=== PATIENT | male | born 1985 | race Caucasian/White ===

== ENCOUNTER 2022-11-06 10:40 | Emergency (ER) | payer BC, SELFPAY ==
[2022-11-06 11:20] VITALS: BP 126/76; PULSE 91; RESP 16; TEMP 36.2; O2SAT 99
--- NOTE | 2022-11-06 12:04 | ED.MALEGU ---
HPI - Male Genitourinary General Chief complaint: Urogenital-Male Stated complaint: UTI Source: patient Mode of arrival: ambulatory Limitations: no limitations History of Present Illness HPI Narrative: 37-year-old male presents to urgent care with complaints of dysuria and burning with urination for the past 3 days. Patient denies penile discharge, fever, bodyaches, chills, abdominal pains or back pains. Patient reports that he did have unprotected intercourse with a new partner 1 week ago. MD Complaint: dysuria Onset (ago): day(s) (3) Relieving factors: none Exacerbating factors: none Context: new sexual partner Associated symptoms: Reports denies other symptoms Related Data Allergies Allergy/AdvReac Type Severity Reaction Status Date / Time Sulfa (Sulfonamide Allergy Mild Verified 04/28/16 09:21 Antibiotics) Review of Systems Constitutional: Constitutional: Denies chills, Denies fatigue, Denies fever(s) and Denies weakness ENT: Denies vertigo and Denies dizziness Cardiovascular: Cardiovascular: Denies chest pain Respiratory: Respiratory: Denies chest congestion, Denies cough, Denies dyspnea and Denies wheezing Gastrointestinal: Gastrointestinal: Denies diarrhea, Denies nausea and Denies vomiting Genitourinary: Genitourinary: Reports dysuria, Denies penile discharge, Denies testicular pain and Denies urinary frequency Integumentary/Breasts: Skin/Breast: Denies rash Neurologic: Denies dizziness PMFSH Comments At time of signature, I agree with nursing past medical, surgical, social and family history. There is no relevant family history pertinent to the presenting complaint. Exam Const: General: healthy appearing, no acute distress and alert Nutritional Appearance: well nourished Limitations: no limitations Neck: Neck: normal visual inspection Resp: Effort & Inspection: normal respiratory effort and not labored Auscultation: clear to auscultation bilaterally, no crackles, no rales, no rhonchi and no wheezes Cardio: Rate: regular rate Rhythm: regular rhythm Heart sounds: no murmurs GI: GI Palp: Yes Soft to palpation, No Tenderness to palpation present (GI) and No Guarding due to palpation present (GI) Auscultation: normal bowel sounds : Other: Patient refuses penis/scrotum evaluation Back/Spine/Pelvis: Back: no CVA tenderness Skin: General skin exam: normal color Rashes: no rashes Neuro: General: patient oriented x3 Psych: Affect: normal affect Attitude: cooperative Course Course Level of Care: Express Care Visit Vital Signs Vital signs: Vital Signs Temperature 36.2 C L 11/06/22 11:20 Pulse Rate 91 11/06/22 11:20 Respiratory Rate 16 11/06/22 11:20 Blood Pressure 126/76 11/06/22 11:20 Pulse Oximetry 99 11/06/22 11:20 Oxygen Delivery Room Air 11/06/22 11:20 Temperature 36.2 C L 11/06/22 11:20 Pulse Rate 91 11/06/22 11:20 Respiratory Rate 16 11/06/22 11:20 Blood Pressure 126/76 11/06/22 11:20 Pulse Oximetry 99 11/06/22 11:20 Oxygen Delivery Room Air 11/06/22 11:20 MDM - Male Genitourinary MDM Narrative Medical decision making narrative: discussed negative urinalysis results with patient. due to symptoms, I am highly suspicious for an STD. Urine will be sent to lab for chlamydia, gonorrhea and Trichomonas. Patient will be treated with Rocephin and prescription for doxycycline will be sent to pharmacy. Patient understands that he is to abstain from intercourse pending STD results. Patient understands that he is to inform all partners of test results if positive Differential Diagnosis Differential diagnosis: Likely urethritis, epididymitis and genital herpes simplex Lab Data Labs: Urine Glucose Negative Reference Range: Negative Urine Bilirubin Negative Reference Range: Negative Urine Ket
[2022-11-06] MEDS: cefTRIAXone 500 MG VIAL IM (12:15)
== END 2022-11-06 12:40 | disposition home or self-care (01) ==
PROVIDERS: Emergency Provider Nurse Practitioner Family; PCP Physician Assistant
DX: R30.0 Dysuria (principal); Z72.51 High risk heterosexual behavior
CPT/HCPCS: 81003; 87491; 87591; 87661; 96372; 99213; G0463; J0696

== ENCOUNTER → 2022-12-15 10:39 | Outpatient (CLI) | payer BC, SELFPAY ==
--- NOTE | ~2022-12-15 | XR_ITS ---
EXAMINATION: XR lumbar spine min 4V DATE: 12/15/2022 11:03 INDICATION: Right-sided low back pain TECHNIQUE: Anteroposterior, lateral, and bilateral oblique views of the lumbar spine, and cone-down l ateral view of the lumbosacral junction were obtained. COMPARISON: CT dated 04/28/2016 FINDINGS: 5 degrees lumbar levocurvature. Sagittal alignment is normal. Vertebral body and disc heights are nor mal. Mild mid to lower lumbar facet osteoarthritis. No pars interarticularis defects. Sacral arches a re intact. Mild bilateral sacroiliac osteoarthritis. IMPRESSION: 1. Mild lumbar levocurvature and mild facet osteoarthritis. 2. Mild bilateral sacroiliac osteoarthritis. Reviewed, dictated and finalized at location B. NE UNDERWRITER
== END ==
PROVIDERS: PCP Emergency Medicine; Visit Provider Emergency Medicine
DX: M53.3 Sacrococcygeal disorders, not elsewhere classified (principal); M51.36 Other intervertebral disc degeneration, lumbar region
CPT/HCPCS: 72110

== ENCOUNTER 2023-03-24 13:37 | Emergency (ER) | payer BC, SELFPAY ==
[2023-03-24 13:48] VITALS: BP 119/62; PULSE 74; RESP 16; TEMP 36.7; O2SAT 99
--- NOTE | 2023-03-24 13:50 | ED.URI ---
HPI - URI/Sore Throat General Stated Complaint: sti Source: patient and RN notes reviewed Mode of arrival: ambulatory Limitations: no limitations Related Data Allergies Allergy/AdvReac Type Severity Reaction Status Date / Time Sulfa (Sulfonamide Allergy Mild Verified 04/28/16 09:21 Antibiotics) Review of Systems Review of Systems: CONSTITUTIONAL: Denies malaise, chills, sweats, or fever. CARDIOVASCULAR: Denies chest pain, palpitations, or edema. RESPIRATORY: Denies cough or dyspnea. GASTROINTESTINAL: Denies abdominal pain, nausea, vomiting, diarrhea GENITOURINARY: Reports dysuria, frequency, urgency, suprapubic pressure. Denies flank pain or hematuria. SKIN: Denies rash or itching. MUSCULOSKELETAL: Denies back pain or myalgia. All systems reviewed & are unremarkable except as noted in HPI and below PMFSH Comments At time of signature, agree with nursing past medical, surgical, social and family history. There is no relevant family history pertinent to the presenting complaint Exam Narrative: GENERAL: Well-appearing, well-nourished, and in no acute distress. HEAD: Normocephalic. EYES: PERRLA, conjunctivae clear. NECK: Supple. No lymphadenopathy CHEST: Clear to auscultation. No respiratory distress. HEART: Regular rate and rhythm. ABDOMEN: Soft, nontender upon palpation, nondistended, normal active bowel sounds, no palpable or pulsatile masses, no guarding. No CVA tenderness SKIN: Warm, dry, no rash. NEURO: Alert and oriented x3. PSYCH: Normal mood and affect Course Course Emergency Course: Patient is aware of diagnosis, understands and agrees to treatment plan. Anticipatory guidance given. Patient agrees to follow-up as directed and is aware of reasons to seek care at the emergency department. Portions of this record may have been created with voice recognition software Level of Care: Express Care Visit Vital Signs Vital signs: Vital Signs Temperature 98.0 F 03/24/23 13:48 Pulse Rate 74 03/24/23 13:48 Respiratory Rate 16 03/24/23 13:48 Blood Pressure 119/62 03/24/23 13:48 Pulse Oximetry 99 03/24/23 13:48 Oxygen Delivery Room Air 03/24/23 13:48 Temperature 98.0 F 03/24/23 13:48 Pulse Rate 74 03/24/23 13:48 Respiratory Rate 16 03/24/23 13:48 Blood Pressure 119/62 03/24/23 13:48 Pulse Oximetry 99 03/24/23 13:48 Oxygen Delivery Room Air 03/24/23 13:48 Reviewed. Critical Care Time Critical Care Time Critical Care Time: No Discharge Plan Discharge Prescriptions: No Action doxycycline hyclate 100 mg capsule 100 mg PO BID 10 Days Qty: 20 0RF Follow-up/Referrals: Glenroy Diaz MD [Primary Care Provider] -
--- NOTE | 2023-03-24 14:47 | ED.MALEGU ---
HPI - Male Genitourinary General Chief complaint: Urogenital-Male Stated complaint: sti Time Seen by Provider: 03/24/23 14:36 Source: patient and RN notes reviewed Mode of arrival: ambulatory Limitations: no limitations History of Present Illness HPI Narrative: 37-year-old male presents with concern for dysuria. He reports symptoms started about 2 weeks ago he has a constant burning, not only when he urinates but when he is not urinating. He denies penile discharge. He denies abdominal pain, nausea, vomiting, flank pain. Denies fever, aches, chills, sweats. Denies discharge from his penis or lesions on his penis. He reports he was treated for STDs in the past for the similar symptoms that made his symptoms go away. He denies any known exposure to STD MD Complaint: dysuria Related Data Home Medications Medication Instructions Recorded Confirmed cholecalciferol (vitamin D3) 03/24/23 Allergies Allergy/AdvReac Type Severity Reaction Status Date / Time Sulfa (Sulfonamide Allergy Mild Unknown Verified 03/24/23 14:07 Antibiotics) Review of Systems Review of Systems: CONSTITUTIONAL: Denies malaise, chills, sweats, or fever. CARDIOVASCULAR: Denies chest pain, palpitations, or edema. RESPIRATORY: Denies cough or dyspnea. GASTROINTESTINAL: Denies abdominal pain, nausea, vomiting, diarrhea GENITOURINARY: Reports dysuria, frequency, urgency, suprapubic pressure. Denies flank pain or hematuria. Denies testicular redness, swelling, pain, tenderness SKIN: Denies rash or itching. MUSCULOSKELETAL: Denies back pain or myalgia. All systems reviewed & are unremarkable except as noted in HPI and below PMFSH Comments At time of signature, agree with nursing past medical, surgical, social and family history. There is no relevant family history pertinent to the presenting complaint Exam Narrative: GENERAL: Well-appearing, well-nourished, and in no acute distress. HEAD: Normocephalic. EYES: PERRLA, conjunctivae clear. NECK: Supple. No lymphadenopathy CHEST: Clear to auscultation. No respiratory distress. HEART: Regular rate and rhythm. ABDOMEN: Soft, nontender upon palpation, nondistended, normal active bowel sounds, no palpable or pulsatile masses, no guarding. No CVA tenderness SKIN: Warm, dry, no rash. NEURO: Alert and oriented x3. PSYCH: Normal mood and affect Course Course Emergency Course: Patient is aware of diagnosis, understands and agrees to treatment plan. Anticipatory guidance given. Patient agrees to follow-up as directed and is aware of reasons to seek care at the emergency department. Portions of this record may have been created with voice recognition software Level of Care: Express Care Visit Vital Signs Vital signs: Vital Signs Temperature 98.0 F 03/24/23 13:48 Pulse Rate 74 03/24/23 13:48 Respiratory Rate 16 03/24/23 13:48 Blood Pressure 119/62 03/24/23 13:48 Pulse Oximetry 99 03/24/23 13:48 Oxygen Delivery Room Air 03/24/23 13:48 Temperature 98.0 F 03/24/23 13:48 Pulse Rate 74 03/24/23 13:48 Respiratory Rate 16 03/24/23 13:48 Blood Pressure 119/62 03/24/23 13:48 Pulse Oximetry 99 03/24/23 13:48 Oxygen Delivery Room Air 03/24/23 13:48 Reviewed. Critical Care Time Critical Care Time Critical Care Time: No Discharge Plan Discharge Clinical Impression: Dysuria Patient Disposition: Home, Self-Care Condition: Stable Instructions: Antibiotic Form, Dysuria (ED) Additional Instructions: Your urinalysis looks normal, does not show a urinary tract infection You have been tested for potential gonorrhea, chlamydia, and trichomoniasis today. You have received antibiotics to treat gonorrhea today, a prescription has been called into your pharmacy to treat chlamydia and trichomoniasis. You will receive a phone call in 2-3 days with the results of today's testing. It is very important that you avoid unprotected intercourse during t
[2023-03-24] MEDS: cefTRIAXone 500 MG, LIDOCAINE HCL 1% LOCAL INJ 1 ML IM (15:09)
== END 2023-03-24 15:30 | disposition home or self-care (01) ==
PROVIDERS: Emergency Provider Nurse Practitioner; PCP Emergency Medicine
DX: R30.0 Dysuria (principal)
CPT/HCPCS: 81003; 87491; 87591; 87661; 96372; 99213; G0463; J0696

== ENCOUNTER 2023-03-24 22:00 | Emergency (ER) | payer BC, SELFPAY ==
--- NOTE | ~2023-03-24 | CT_ITS ---
EXAMINATION: CT abdomen pelvis w con DATE: 03/25/2023 00:07 INDICATION: Abdominal pain. Groin pain. Dizziness. TECHNIQUE: Computed tomography (CT) of the abdomen and pelvis was performed with 100 mL Omnipaque 350 intravenous contrast. Automated exposure control and iterative reconstruction technique were employe d. The dose-length product was 1217.83 mGy-cm. COMPARISON: CT abdomen and pelvis 04/28/2016 FINDINGS: The visualized portions of the lung bases demonstrate mild atelectasis. No pleural effusion . The heart size is normal. No pericardial effusion. The liver, gallbladder, spleen, pancreas, and ad renal glands are normal. There are cysts in the kidneys measuring up to 15 mm on the right. There are no dilated loops of bowel. The appendix is normal. There are no pathologically enlarged lymph nodes. There is no free intraperitoneal fluid. There is mild lumbar spondylosis. IMPRESSION: 1. No etiology for the patient's symptoms. Reviewed, dictated and finalized at location A.
--- NOTE | ~2023-03-24 | CT_ITS ---
EXAMINATION: CT brain wo con DATE: 03/25/2023 00:03 INDICATION: Dizziness. TECHNIQUE: Computed tomography (CT) of the head was performed without intravenous contrast. The mA wa s adjusted according to patient size. Iterative reconstruction technique was employed. The dose-lengt h product was 756.67 mGy-cm. COMPARISON: Head CT 05/10/2011 FINDINGS: There is no intracranial hemorrhage, acute infarction, or abnormal intracranial mass lesion . The ventricles are normal in size. The orbits are normal. There is mild mucosal thickening in the p aranasal sinuses. The mastoid air cells are normal. IMPRESSION: 1. Normal brain. Reviewed, dictated and finalized at location A. IMPRESSION: 1. Normal brain.
--- NOTE | ~2023-03-24 | XR_ITS ---
EXAMINATION: XR chest 1V portable DATE: 03/24/2023 22:56 INDICATION: Weakness. TECHNIQUE: A single frontal view of the chest was obtained on 2 radiographs. COMPARISON: Chest 2 views 02/17/2012, CT abdomen and pelvis 03/25/2023 FINDINGS: There is no pneumonia, pleural effusion, or pneumothorax. The heart size is normal. IMPRESSION: 1. No acute cardiopulmonary disease. Reviewed, dictated and finalized at location A.
[2023-03-24 22:11] VITALS: BP 148/77; PULSE 85; RESP 20; TEMP 36.1; O2SAT 99
--- NOTE | 2023-03-24 22:17 | ECG_ITS ---
Measurements Intervals [place] Rate: 74 P: 63 [place]: 142 QRS: 61 QRSD: 103 T: 51 QT: 374 QTc: 417 Interpretive Statements SINUS RHYTHM BASELINE ARTIFACT- I, II, AVR, AVL, AVF NORMAL ECG NO PREVIOUS ECG AVAILABLE FOR COMPARISON Electronically Signed On 03-25-2023 7:59:15 CDT by Donny Sanchez D.O.
[2023-03-24 22:53] VITALS: BP 129/69; PULSE 71
[2023-03-24 22:54] VITALS: BP 119/69; BP 119/78; PULSE 72; PULSE 81
[2023-03-24] MEDS: SODIUM CHLORIDE 0.9% IV 1,000 ML 999 ML IV CONT (22:58)
[2023-03-24] MEDS: METOCLOPRAMIDE HCL INJ 10 MG/2 ML VIAL IV PUSH (22:58)
[2023-03-24 23:06] LABS: Basophils Percent Auto 0.4 % (0.2-1.2); Eosinophils Absolute Auto 0.1 K/mm3 (0-0.3); Eosinophils Percent Auto 0.8 % (0-4.4); Hematocrit 40.7 % (42.0-52.0); Hemoglobin 13.3 g/dL (14.0-18.0); Immature Granulocyte Absolute 0.04 K/mm3 (0.00-0.031); Immature Granulocyte Percent A 0.4 % (0-0.5); Lymphocytes Percent Auto 18.5 % (18.3-44.2); Mean Corpuscular HGB Conc 32.7 g/dl (32-36); Mean Corpuscular Hemoglobin 28.7 pg (26-34); Mean Corpuscular Volume 87.9 fl (80-100); Mean Platelet Volume 9.3 fl (7.4-10.4); Monocytes Absolute Auto 0.8 K/mm3 (0.1-0.6); Monocytes Percent Auto 7.7 % (2.6-8.5); Neutrophils Absolute Auto 7.4 K/mm3 (1.3-6.7); Neutrophils Percent Auto 72.2 % (45.5-73.1); Platelet Count Result 410 k/mm3 (150-375); Red Blood Count 4.63 M/mm3 (4.6-6.20); Red Cell Distribution Width 13.2 % (11.5-14.5); White Blood Count 10.3 K/mm3 (4.5-10.0)
[2023-03-24 23:08] LABS: Appearance Urine Clear (Clear); Bilirubin Urine Negative (Negative); Blood Urine Negative (Negative); Color Urine Yellow (Yellow); Glucose Urine UA Negative (Negative); Ketones Urine Negative (Negative); Leukocyte Esterase Ur Negative LEU/UL (Negative); Nitrate Urine Negative (Negative); Protein Urine Negative (Negative); Urobilinogen Urine 0.2 mg/dL (<2.0)
[2023-03-24 23:39] LABS: Specific Grav Ur 1.022 (1.001-1.035)
[2023-03-24 23:43] LABS: Add Urine Microscopic? NO
[2023-03-24 23:44] LABS: Alanine Aminotransferase 25 U/L (6-50); Albumin Level 4.4 g/dL (3.5-5.1); Alkaline Phosphatase 59 U/L (38-126); Anion Gap 9 mmol/L (8-16); Aspartate Amino Transferase 33 U/L (17-59); Bilirubin,Total 0.4 mg/dL (0.2-1.3); Blood Urea Nitrogen 13 mg/dL (9-20); Calcium 8.8 mg/dL (8.4-10.2); Carbon Dioxide 25 mmol/L (22-30); Chloride 105 mmol/L (98-107); Estimated CRCL calculation 158 ml/min; Estimated Glomerular Filt Rate > 60; Glucose 106 mg/dL (65-110); Lipase 62 U/L (23-300); Magnesium 2.1 mg/dL (1.6-2.3); Potassium 3.9 mmol/L (3.4-5.0); Sodium 139 mmol/L (137-145)
--- NOTE | 2023-03-24 23:45 | ED.GENADULT ---
HPI - General Adult General Chief complaint: Dizziness Stated complaint: dizziness, ab pain, Time Seen by Provider: 03/24/23 22:29 History of Present Illness HPI narrative: Patient 37-year-old gentleman who presents the emergency department with chief complaint of dizziness and abdominal pain. Patient reports has been having 1 running history of dizziness since he had a head injury sometime ago. The patient reports has been getting progressively worse and reports that he has had episodes where he feels lightheaded with standing. Patient reports no focal neurological deficits and also reports that he has been having abdominal pain reports its not improved by anything and reports that he had a normal bowel movement has had normal urination was seen in urgent care and treated for possible STI exposure. Related Data Home Medications Medication Instructions Recorded Confirmed cholecalciferol (vitamin D3) 03/24/23 Allergies Allergy/AdvReac Type Severity Reaction Status Date / Time Sulfa (Sulfonamide Allergy Mild Unknown Verified 03/24/23 14:07 Antibiotics) Review of Systems Review of Systems: A 10 system review of systems was completed on the patient and is negative except for what is stated in the HPI. Nursing and ancillary documentation was reviewed. Exam Narrative: GENERAL: Well-appearing, well-nourished, and in no acute distress. HEAD: Normocephalic, atraumatic. EYES: PERRLA and EOMI. ENT: Nares clear, no rhinorrhea or epistaxis. Mucous membranes moist. NECK: Supple. CHEST: Clear to auscultation. No respiratory distress. HEART: Regular rate and rhythm. No murmur heard. Normal peripheral pulses. ABDOMEN: Soft, diffusely tender to palpation, nondistended, normal active bowel sounds. EXTREMITIES: Normal range of motion. No edema. SKIN: Warm, dry, no rash. NEURO: No focal deficits. Alert and oriented x3. PSYCH: Normal mood and affect. Course Vital Signs Vital signs: Vital Signs Temperature 36.1 C L 03/24/23 22:11 Pulse Rate 85 03/24/23 22:11 Respiratory Rate 20 03/24/23 22:11 Blood Pressure 148/77 H 03/24/23 22:11 Pulse Oximetry 99 03/24/23 22:11 Oxygen Delivery Room Air 03/24/23 22:11 Temperature 36.1 C L 03/24/23 22:11 Pulse Rate 81 03/24/23 22:54 Respiratory Rate 20 03/24/23 22:11 Blood Pressure 119/78 03/24/23 22:54 Pulse Oximetry 99 03/24/23 22:11 Oxygen Delivery Room Air 03/24/23 22:11 Medical Decision Making [facility] Narrative Medical decision making narrative: Differential diagnosis includes vertigo, dehydration, viral syndrome, cholecystitis, cholelithiasis, appendicitis, diverticulitis, CT head showed no acute abnormality CT of the abdomen pelvis showed no acute abnormality Laboratory studies were obtained which showed a CBC with a white count of 10.3 hemoglobin of 13.3 electrolytes showed normal sodium potassium BUN and creatinine magnesium was 2.1 liver enzymes are within normal limits troponin was negative lipase was negative urinalysis showed no evidence of UTI and negative for ketones and specific gravity of 1.022 Patient received IV fluids in the emergency department and the patient is feeling somewhat better at this time. Patient be discharged home to follow-up with his primary care physician, Vital Signs Vital Signs: Vital Signs Temperature 36.1 C L 03/24/23 22:11 Pulse Rate 85 03/24/23 22:11 Respiratory Rate 20 03/24/23 22:11 Blood Pressure 148/77 H 03/24/23 22:11 Pulse Oximetry 99 03/24/23 22:11 Oxygen Delivery Room Air 03/24/23 22:11 Temperature 36.1 C L 03/24/23 22:11 Pulse Rate 81 03/24/23 22:54 Respiratory Rate 20 03/24/23 22:11 Blood Pressure 119/78 03/24/23 22:54 Pulse Oximetry 99 03/24/23 22:11 Oxygen Delivery Room Air 03/24/23 22:11 Lab Data 03/24/23 22:52 03/24/23 22:53 Labs: Lab Results 03/24/23 03/24/23 Range/Units 22:52 2
[2023-03-24 23:55] LABS: Troponin I < 0.012 ng/mL (0.000-0.034)
[2023-03-25 02:00] VITALS: BP 120/74; PULSE 62; RESP 14; O2SAT 100
== END 2023-03-25 02:05 | disposition home or self-care (01) ==
PROVIDERS: Emergency Provider Emergency Medicine; PCP Emergency Medicine
DX: R42 Dizziness and giddiness (principal); R10.84 Generalized abdominal pain
CPT/HCPCS: 36415; 70450; 71045; 74177; 80053; 81003; 83690; 83735; 84484; 85025; 87491; 87591; 87661; 93005; 96361; 96372; 96374; 99284; J0696; J2765; J7030; Q9967

== ENCOUNTER 2023-07-16 19:26 | Emergency (ER) | payer BC, SELFPAY ==
[2023-07-16 19:33] VITALS: BP 130/67; PULSE 77; RESP 16; TEMP 36.7; O2SAT 100
--- NOTE | 2023-07-16 19:35 | ED.EAR ---
HPI - Ear Problem General Chief complaint: Ear Stated complaint: Right Ear Irritation Time Seen by Provider: 07/16/23 19:35 Source: patient Mode of arrival: ambulatory Limitations: no limitations History of Present Illness HPI Narrative: Cristobal is a 38-year-old male patient presenting to the clinic today with complaints of right ear pain x1 week. Reports that the pain got worse over the last few hours. He denies any known fever or chills Related Data Allergies Allergy/AdvReac Type Severity Reaction Status Date / Time Sulfa (Sulfonamide Allergy Mild Unknown Verified 07/16/23 19:28 Antibiotics) Review of Systems Review of Systems: Pertinent positives per HPI. Patient denies any fever, chills, rash, headache, visual changes, dizziness, cough, runny nose, sore throat, shortness of breath, chest pain, palpitations, nausea, vomiting, diarrhea, constipation, abdominal pain, or any urinary issues. PMFSH Comments At the time of my signature, I reviewed and agree with the nursing past medical, surgical, social, and family history. There is no relevant family history pertinent to the patient complaint. Exam Narrative: General: Well-developed, well nourished, in no apparent distress Head: Normocephalic, atraumatic Eyes: Pupils equally round and reactive to light bilaterally, EOM intact, sclera and conjunctive clear, no discharge, lids normal Ears: Left tMs intact and clear, right TM intact, mild bulging, with fluid noted behind the TM, ear canals clear, no drainage, grossly hearing normal. Nose: Nares patent, clear discharge, no inflammation, no sinus tenderness. Mouth: Oropharynx without lesions or masses, good dentition, MMM. Neck: Supple, trachea midline, no enlargement of anterior or posterior cervical nodes, no thyroid masses or goiter palpable. Cardio: Regular rate and rhythm, s1 and s2 normal, no murmur appreciated. Resp: Clear to auscultation bilaterally anteriorly and posteriorly, no rhonchi, rales, wheezing or rubs Course Course Emergency Course: Portions of this record may have been created with voice recognition software. Level of Care: Express Care Visit Vital Signs Vital signs: Vital Signs Temperature 36.7 C 07/16/23 19:33 Pulse Rate 77 07/16/23 19:33 Respiratory Rate 16 07/16/23 19:33 Blood Pressure 130/67 07/16/23 19:33 Pulse Oximetry 100 07/16/23 19:33 Oxygen Delivery Room Air 07/16/23 19:33 Temperature 36.7 C 07/16/23 19:33 Pulse Rate 77 07/16/23 19:33 Respiratory Rate 16 07/16/23 19:33 Blood Pressure 130/67 07/16/23 19:33 Pulse Oximetry 100 07/16/23 19:33 Oxygen Delivery Room Air 07/16/23 19:33 Vital signs reviewed Medical Decision Making MDM Narrative Medical decision making narrative: At the time of visit patient is resting comfortably on the exam table. I suspect patient has serous otitis. Prescription for prednisone was sent to the pharmacy. Supportive measures were discussed with the patient and he voiced understanding discharge instructions agrees to treatment plan. Differential Diagnosis Differential Diagnosis: Otitis media, otitis turning, eustachian tube dysfunction, serous otitis. Cerumen impaction. Vital Signs Vital Signs: Vital Signs Temperature 36.7 C 07/16/23 19:33 Pulse Rate 77 07/16/23 19:33 Respiratory Rate 16 07/16/23 19:33 Blood Pressure 130/67 07/16/23 19:33 Pulse Oximetry 100 07/16/23 19:33 Oxygen Delivery Room Air 07/16/23 19:33 Temperature 36.7 C 07/16/23 19:33 Pulse Rate 77 07/16/23 19:33 Respiratory Rate 16 07/16/23 19:33 Blood Pressure 130/67 07/16/23 19:33 Pulse Oximetry 100 07/16/23 19:33 Oxygen Delivery Room Air 07/16/23 19:33 Discharge Plan Discharge Clinical Impression: Acute serous otitis media Patient Disposition: Home, Self-Care Condition: Stable Instructions: Antibiotic Form, Fluid In The Ear (Serous Otitis Media) (ED) Ad
== END 2023-07-16 19:38 | disposition home or self-care (01) ==
PROVIDERS: Emergency Provider Nurse Practitioner Family; PCP Emergency Medicine
DX: H65.01 Acute serous otitis media, right ear (principal)
CPT/HCPCS: 99213; G0463

== ENCOUNTER 2023-11-27 16:00 | Emergency (ER) | payer BC, SELFPAY ==
[2023-11-27 16:09] VITALS: BP 152/90; PULSE 99; RESP 16; TEMP 36.8; O2SAT 100
--- NOTE | 2023-11-27 16:10 | ED.MALEGU ---
HPI - Male Genitourinary General Chief complaint: Urogenital-Male Stated complaint: UTI Time Seen by Provider: 11/27/23 16:32 Source: patient Mode of arrival: ambulatory Limitations: no limitations History of Present Illness HPI Narrative: Cristobal is a 38-year-old male patient presenting to the clinic today with complaints of possible urinary tract infection. He reports that over the past 2 months he has peed approximately 10 times per day. He notices that 2 episodes usually the 1st episode in the morning and mid afternoon are malodorous. He denies any fever, chills, burning, frequency, urgency, concern for STI, back pain, flank pain, or stomach pain. Related Data Allergies Allergy/AdvReac Type Severity Reaction Status Date / Time Sulfa (Sulfonamide Allergy Mild Unknown Verified 11/27/23 16:09 Antibiotics) Review of Systems Review of Systems: Pertinent positives per HPI. Patient denies any fever, chills, rash, headache, visual changes, dizziness, cough, shortness of breath, chest pain, palpitations, nausea, vomiting, diarrhea, constipation, abdominal pain, or any urinary issues. PMFSH Comments At the time of my signature, I reviewed and agree with the nursing past medical, surgical, social, and family history. There is no relevant family history pertinent to the patient complaint. Exam Narrative: General: Well-developed, well nourished, in no apparent distress Head: Normocephalic, atraumatic Eyes: Pupils equally round and reactive to light bilaterally, EOM intact, sclera and conjunctive clear, no discharge, lids normal Ears: TMs intact and clear, ear canals clear, no drainage, grossly hearing normal. Nose: Nares patent, no discharge, no inflammation, no sinus tenderness. Mouth: Oral pharynx without lesions or masses, good dentition, MMM. Neck: Supple, trachea midline, no enlargement of anterior or posterior cervical nodes, no thyroid masses or goiter palpable. Cardio: Regular rate and rhythm, s1 and s2 normal, no murmur appreciated. Resp: Clear to auscultation bilaterally, no rhonchi, rales, wheezing or rubs Course Course Emergency Course: Portions of this record may have been created with voice recognition software. Level of Care: Express Care Visit Vital Signs Vital signs: Vital Signs Temperature 36.8 C 11/27/23 16:09 Pulse Rate 99 11/27/23 16:09 Respiratory Rate 16 11/27/23 16:09 Blood Pressure 152/90 H 11/27/23 16:09 Pulse Oximetry 100 11/27/23 16:09 Oxygen Delivery Room Air 11/27/23 16:09 Temperature 36.8 C 11/27/23 16:09 Pulse Rate 99 11/27/23 16:09 Respiratory Rate 16 11/27/23 16:09 Blood Pressure 152/90 H 11/27/23 16:09 Pulse Oximetry 100 11/27/23 16:09 Oxygen Delivery Room Air 11/27/23 16:09 Vital signs reviewed MDM - Male Genitourinary MDM Narrative Medical decision making narrative: At the time of visit patient is resting comfortably on the exam table. Patient appears to be nontoxic. Urinalysis was performed and was negative for any sign of infection. Supportive measures were discussed with the patient and they voiced understanding discharge instructions and agrees to treatment plan. Return precautions reviewed Differential Diagnosis Differential diagnosis: Likely urinary tract infection, urethritis and prostatitis Discharge Plan Discharge Clinical Impression: Malodorous urine Patient Disposition: Home, Self-Care Instructions: Antibiotic Form Additional Instructions: Urinalysis is negative for any sign of infection, blood, protein, ketones, or glucose. Recommend increasing fluids and stay well hydrated Urine that is more concentrated can be foul smelling Follow-up with your primary care provider as needed Follow-up/Referrals: Glenroy Diaz MD [Primary Care Provider] - Time of Disposition: 16:32 Quality NIHSS Nursing Documentation ED NIHSS nursing documentation: reviewed/agree
== END 2023-11-27 16:51 | disposition home or self-care (01) ==
PROVIDERS: Emergency Provider Nurse Practitioner Family; PCP Emergency Medicine
DX: R82.90 Unspecified abnormal findings in urine (principal)
CPT/HCPCS: 81003; 99212; G0463

== ENCOUNTER 2024-05-10 12:46 | Emergency (ER) | payer BC, SELFPAY ==
--- NOTE | ~2024-05-10 | XR_ITS ---
XR knee RT min 4V DATE: 05/10/2024 13:35 INDICATION: Pain and swelling while running up [place]. Popping and clicking. TECHNIQUE: 4 views COMPARISON: None FINDINGS: There is minimal particular spurring of the patella and prominent spurring of the lateral t ibial plateau. Knee joint spaces appear relatively preserved. Hypertrophic change of the tibial spine s. No fracture or dislocation or joint effusion. No radiopaque intra-articular loose body or, calcinosis . No periosteal reaction or bone destruction. IMPRESSION: Mild osteoarthritis; no fracture or dislocation or joint effusion is noted Reviewed, dictated and finalized at location A. IMPRESSION: Mild osteoarthritis; no fracture or dislocation or joint effusion i s noted
[2024-05-10 13:10] VITALS: BP 104/67; PULSE 82; RESP 18; O2SAT 98
--- NOTE | 2024-05-10 13:12 | ED.LOWEXIN ---
HPI - Extremity Injury (Lower) General Chief Complaint: Extremity Injury, Lower Stated Complaint: R knee pain Time Seen by Provider: 05/10/24 12:52 Source: patient Mode of arrival: ambulatory Limitations: no limitations History of Present Illness HPI Narrative: Patient presents with right anterolateral knee pain and swelling. He states he felt a pop while he was running up a hill on Sunday. Initially felt fine but then the next day he started hearing a clicking noise as he moved it. Pain is worse when the knee is flexed knee is bending. He started to have more pain bearing weight yesterday. States it feels gooey inside. Has not been taking anything for pain. Denies any paresthesias. No fevers. He states when his approximately 20 years ago he knows that he had some kind of injury or issue in this same knee but does not recall the details only that he was on crutches for a bit and then it resolved without need for operation. States he used to weigh significantly more. Related Data Allergies Allergy/AdvReac Type Severity Reaction Status Date / Time Sulfa (Sulfonamide Allergy Mild Unknown Verified 11/27/23 16:09 Antibiotics) Exam Narrative: GENERAL: Well-appearing, well-nourished, and in no acute distress. HEAD: Normocephalic, atraumatic. EYES: Non injected, non icteric ENT: Nares clear, no rhinorrhea or epistaxis. NECK: Supple. CHEST: Speaking in full sentences. No respiratory distress. HEART: Regular rate and rhythm. . ABDOMEN: Soft, nondistended. EXTREMITIES: Normal range of motion. No laxity on anterior/ posterior drawer testing. Patellar grind test positive. No overlying skin infection/palpable cyst. SKIN: Warm, dry, no rash. NEURO: No focal deficits. Alert and oriented x3. Sensation intact to touch in bilateral lower extremities and symmetric. Symmetric and brisk patellar reflexes. PSYCH: Normal mood and affect. Course Vital Signs Vital signs: Vital Signs Pulse Rate 82 05/10/24 13:10 Respiratory Rate 18 05/10/24 13:10 Blood Pressure 104/67 05/10/24 13:10 Pulse Oximetry 98 05/10/24 13:10 Pulse Rate 82 05/10/24 13:10 Respiratory Rate 18 05/10/24 13:10 Blood Pressure 104/67 05/10/24 13:10 Pulse Oximetry 98 05/10/24 13:10 MDM - Extremity Injury (Lower) MDM Narrative Medical decision making narrative: Patient presents with right anterolateral pain sustained while running up a hill. In the emergency department they are afebrile with vital signs within normal limits. patient's symptoms sound consistent with patellofemoral pain syndrome given distribution of pain and reproducibility on examination. given analgesia. Plain film imaging as below. discharged in stable condition with prescriptions for [id number] analgesics medications and advised to follow-up primary care physician; provided ortho referral as well. Differential Diagnosis Differential diagnosis: Likely acute internal derangement of knee (sprain/strain) and other ( patellofemoral pain syndrome, meniscal tear/ injury, ligamentous injury) Imaging Data Radiologist's impression: Impressions Knee X-Ray 05/10/24 13:40 IMPRESSION: Mild osteoarthritis; no fracture or dislocation or joint effusion is noted Discharge Plan Discharge Clinical Impression: Patellofemoral syndrome, right Osteoarthritis of right knee Qualifiers: Osteoarthritis type: unspecified Qualified Code(s): M17.11 - Unilateral primary osteoarthritis, right knee Patient Disposition: Home, Self-Care Condition: Stable Instructions: Antibiotic Form, Osteoarthritis (ED), Patellofemoral Pain Syndrome (ED), Knee Pain (ED), Patellofemoral Pain Syndrome Exercises (ED) Additional Instructions: You do have evidence of osteoarthritis on your x-ray. Your symptoms sound consistent with patellofemoral pain syndrome And have included instructions about this as well as some exercises you can perform in yo
[2024-05-10] MEDS: HYDROcodone/acetaminophen (*CRX) 5-325 MG TABLET 1 TAB PO (13:28)
[2024-05-10 13:48] VITALS: TEMP 37
[2024-05-10] MEDS: KETOROLAC 30 MG/ML VIAL (*BKC) 15 MG IM (14:00)
[2024-05-10 14:07] VITALS: BP 114/72; PULSE 84; RESP 18; O2SAT 100
== END 2024-05-10 14:09 | disposition home or self-care (01) ==
PROVIDERS: Emergency Provider Student in an Organized Health Care Education/Training Program; PCP Emergency Medicine
DX: M17.11 Unilateral primary osteoarthritis, right knee (principal); M22.2X1 Patellofemoral disorders, right knee
CPT/HCPCS: 73564; 96372; 99283; A9270; J1885

== ENCOUNTER 2025-02-03 17:01 | Emergency (ER) | payer BC, SELFPAY ==
--- NOTE | ~2025-02-03 | XR_ITS ---
HISTORY: fall, general pain in right upper extremity COMPARISON: None TECHNIQUE: 2 views of the right humerus were performed FINDINGS: No acute or subacute fracture. Joint spaces are preserved and alignment is maintained. Soft tissues are unremarkable without foreign body or significant calcification. Age-appropriate mineralization. IMPRESSION: No acute fracture or dislocation. Reviewed, dictated and finalized at location A.
[2025-02-03 17:11] VITALS: BP 121/98; PULSE 88; RESP 16; TEMP 36.6; O2SAT 100
--- NOTE | 2025-02-03 17:12 | ED.UPPEXIN ---
HPI - Extremity Injury (Upper) General Chief Complaint: Extremity Injury, Upper Stated Complaint: R arm injury Time Seen by Provider: 02/03/25 17:40 Source: patient and RN notes reviewed Mode of arrival: ambulatory Limitations: no limitations History of Present Illness HPI narrative: 39-year-old male presents with concern of for right arm pain. Reports he fell yesterday and landed on his arm. Reports mid arm tenderness that radiates to the shoulder and the elbow. Denies elbow or shoulder tenderness. Reports that rest he has no pain pain is elicited with movement of the arm. He denies bruising, swelling, redness, warmth complaint: injury to: right and arm Related Data Allergies Allergy/AdvReac Type Severity Reaction Status Date / Time Sulfa (Sulfonamide Allergy Mild Unknown Verified 02/03/25 17:09 Antibiotics) Review of Systems Review of Systems: CONSTITUTIONAL: Denies malaise, chills, sweats, or fever. SKIN: Denies rash or itching, open skin, laceration, abrasion, redness, warmth, swelling. MUSCULOSKELETAL: Reports right arm pain NEUROLOGIC: Denies numbness, weakness All systems reviewed & are unremarkable except as noted in HPI and below PMFSH Comments At time of signature, agree with nursing past medical, surgical, social and family history. There is no relevant family history pertinent to the presenting complaint Exam Narrative: GENERAL: Well-appearing, well-nourished, and in no acute distress. HEAD: Normocephalic, atraumatic. EYES: PERRLA, conjunctivae clear NECK: Supple. CHEST: Speaks in full sentences. No respiratory distress. HEART: Regular rate and rhythm. Normal and equal peripheral pulses. EXTREMITIES: Right upper extremity has grossly normal strength and sensation, grossly normal range of motion. No edema or ecchymosis. 5/5 strength with shoulder and elbow flexion and extension. Normal sensation with sensitivity to light touch and pain. Mid arm tenderness. No open wounds, no skin tenting, no devitalized tissue or atrophy, no trophic changes, no obvious deformity, alignment normal, nearby joints and structures intact. Distal pulses palpable and equal bilaterally, skin warm, dry, pink. Capillary refill less than 3 seconds. SKIN: Warm, dry, no rash. NEURO: Alert and oriented x3. PSYCH: Normal mood and affect Course Course Emergency Course: Patient is aware of diagnosis, understands and agrees to treatment plan. Anticipatory guidance given. Patient agrees to follow-up as directed and is aware of reasons to seek care at the emergency department. Portions of this record may have been created with voice recognition software Level of Care: Express Care Visit Vital Signs Vital signs: Vital Signs Temperature 97.9 F 02/03/25 17:11 Pulse Rate 88 02/03/25 17:11 Respiratory Rate 16 02/03/25 17:11 Blood Pressure 121/98 H 02/03/25 17:11 Pulse Oximetry 100 02/03/25 17:11 Oxygen Delivery Room Air 02/03/25 17:11 Temperature 97.9 F 02/03/25 17:11 Pulse Rate 88 02/03/25 17:11 Respiratory Rate 16 02/03/25 17:11 Blood Pressure 121/98 H 02/03/25 17:11 Pulse Oximetry 100 02/03/25 17:11 Oxygen Delivery Room Air 02/03/25 17:11 Reviewed. MDM - Extremity Injury (Upper) MDM Narrative Medical decision making narrative: Patients injury and pain is consistent with musculoskeletal etiology. No signs of neurological or vascular compromise on exam. Compartments and tissues are soft without signs of compartment syndrome. Pain is felt appropriate for further evaluation on an outpatient basis. Imaging Data My impression: Images reviewed, interpreted by radiologist, agree, see report. Radiologist's impression: HISTORY: fall, general pain in right upper extremity COMPARISON: None TECHNIQUE: 2 views of the right humerus were performed FINDINGS: No acute or subacute fracture. Joint spaces are preserved and alignment is maintained. Soft tissues are unremarkable without foreign body or significant calcification. Age-appropriate mineralization. IMPRESSION: No acute fracture or dislocation. Critical Care Time Critical Care Time Critical Care Time: No Discharge Plan Discharge Clinical Impression: Arm sprain Patient Disposition: Home, Self-Care Condition: Stable Instructions: Elbow Sprain (ED) Additional Instructions: Your x-ray is normal Avoid activities that cause pain until the pain subsides. Ice to the area 20-30 minutes 4-6 times a day Elevate above heart Sling as needed for comfort Tylenol for lesser pain Ibuprofen regularly for the next 2-3 days for the inflammation Follow up with your primary care provider if the condition is not improving within 1 week. If the condition worsens with numbness, tingling, decrease sensation with weakness seek treatment in the emergency room immediately. Patient Language: Tristanian Follow-up/Referrals: Jeffrey Bella MD [Physician] - Glenroy Diaz MD [Primary Care Provider] - Stand Alone Forms: Work/School Release IP Time of Disposition: 17:59
== END 2025-02-03 18:13 | disposition home or self-care (01) ==
PROVIDERS: Emergency Provider Nurse Practitioner; PCP Emergency Medicine
DX: S49.81XA Other specified injuries of right shoulder and upper arm, initial encounter (principal); W19.XXXA Unspecified fall, initial encounter
CPT/HCPCS: 73060; 99213; A4565; G0463

== ENCOUNTER → 2025-02-16 08:15 | Outpatient (CLI) | payer BC, SELFPAY ==
--- NOTE | ~2025-02-16 | XR_ITS ---
EXAMINATION: XR shoulder RT min 2V DATE: 02/16/2025 08:47 INDICATION: Diffuse right shoulder pain post fall 2 weeks prior TECHNIQUE: AP internally and externally rotated, AP oblique externally rotated and transscapular Y vi ews of the right shoulder were obtained. COMPARISON: None FINDINGS: Normal alignment. No fracture. Glenohumeral joint is normal. Minimal acromioclavicular osteoarthriti s. Soft tissues are unremarkable. Right lung is clear with no pleural effusion or pneumothorax. IMPRESSION: Minimal right acromioclavicular osteoarthritis. No acute osseous abnormality. Reviewed, dictated and finalized at location B.
== END ==
LOC: EXPCRAD 08:18
PROVIDERS: PCP Emergency Medicine; Visit Provider Emergency Medicine
DX: M25.511 Pain in right shoulder (principal)
CPT/HCPCS: 73030

== ENCOUNTER 2025-03-10 14:34 | Emergency (ER) | payer BC, SELFPAY ==
--- NOTE | 2025-03-10 14:38 | ED_ITS ---
HPI - Skin/Abscess/Foreign Bdy General Chief complaint: Skin/Abscess/Foreign Body Stated complaint: Rash Time Seen by Provider: 03/10/25 15:04 Source: patient, RN notes reviewed and old records reviewed Mode of arrival: ambulatory Limitations: no limitations History of Present Illness HPI narrative: 39-year-old male presents to the [facility] with concerns for little red bumps surrounding a tech to he recently received. Has been using Aquaphor to the tech to. Recently shaved. Related Data Allergies Allergy/AdvReac Type Severity Reaction Status Date / Time Sulfa (Sulfonamide Allergy Mild Unknown Verified 03/10/25 14:38 Antibiotics) Review of Systems Review of Systems: All systems reviewed & are unremarkable except as noted in HPI and below Constitutional: Constitutional: Reports no additional constitutional complaints ENT: Reports system reviewed and no additional complaints, except as documented Cardiovascular: Cardiovascular: Reports no additional cardiovascular complaints, Denies chest pain and Denies dyspnea Respiratory: Respiratory: Reports no additional respiratory complaints, Denies chest congestion, Denies cough and Denies dyspnea Musculoskeletal: Musculoskeletal: Reports no additional musculoskeletal complaints Integumentary/Breasts: Skin/Breast: Reports as per HPI PMFSH Comments At the time of my signature, I reviewed and agree with the nursing past medical, surgical, social, and family history. There is no relevant family history pertinent to the patient complaint. Exam Const: General: cooperative, healthy appearing, comfortable, no acute distress, well developed, alert and well nourished Nutritional Appearance: well nourished Orientation/consciousness: patient oriented x3 Limitations: no limitations HENMT: Head: normal to inspection Eyes: General: appearance normal, both eyes and all related structures Alignment and Position: alignment normal Neck: Neck: normal visual inspection, full ROM, no lymphadenopathy and no meningeal signs Chest: Chest palpation & inspection: normal inspection of the chest Resp: Effort & Inspection: normal respiratory effort and able to speak in complete sentences Auscultation: clear to auscultation bilaterally, no crac kles, no rales, no rhonchi and no wheezes Cardio: Rate: regular rate Skin: General skin exam: normal color and no rashes or lesions noted Other: Six small bumps, inflamed follicles Most likely folliculitis Neuro: General: patient oriented x3, gait normal, moves all extremities and no meningeal signs Cognition (Neuro): normal cognition Speech: normal speech Gait exam (Neuro): Normal gait present Extrem: General: normal to inspection, full ROM, capillary refill normal and normal gait Psych: Appearance: grossly normal and well kempt Mental Status: mental status grossly normal Speech and movement: Normal speech and movement present and Clear speech present Affect: normal affect Attitude: cooperative Course Course Level of Care: Express Care Visit Vital Signs Vital signs: Vital Signs Temperature 97.4 F L 03/10/25 14:44 Pulse Rate 96 03/10/25 14:44 Respiratory Rate 16 03/10/25 14:44 Blood Pressure 123/78 03/10/25 14:44 Pulse Oximetry 99 03/10/25 14:44 Oxygen Delivery Room Air 03/10/25 14:44 Temperature 97.4 F L 03/10/25 14:44 Pulse Rate 96 03/10/25 14:44 Respiratory Rate 16 03/10/25 14:44 Blood Pressure 123/78 03/10/25 14:44 Pulse Oximetry 99 03/10/25 14:44 Oxygen Delivery Room Air 03/10/25 14:44 Reviewed MDM - Skin/Abscess/Foreign Bdy MDM Narrative Medical decision making narrative: Patient sitting in exam room nontoxic, vitals stable. Patient presents with 6 small bumps to the posterior right lower leg. Most likely folliculitis. Will cover with antibiotic topical. Patient appropriate for outpatient treatment with close follow-up Discharge instructions reviewed with patient, as well as provided in writing per nursing staff. The instructions also include specific and strict return/GO TO THE ER as well as f/u information. All questions have been answered, and the patient deny any further questions with discharge and discharge plan. Some parts of this dictation were generated by voice recognition software and may contain typographical and/or grammatical inaccuracies. Critical Care Time Critical Care Time Critical Care Time: No Discharge Plan Discharge Clinical Impression: Folliculitis Patient Disposition: Home Condition: Stable Instructions: Antibiotic Form, Folliculitis (ED) Additional Instructions: Wash area twice a day with warm soapy water. Apply very small amount of the topical lotion we prescribed Follow-up with primary care provider For new or worsening symptoms go directly to the emergency room Patient Language: Persian Prescriptions: New clindamycin phosphate 1 % solution 1 applic topical DAILY Qty: 30 0RF Follow-up/Referrals: Glenroy Diaz MD [Primary Care Provider] - Stand Alone Forms: Work/School Release IP Time of Disposition: 15:17
[2025-03-10 14:44] VITALS: BP 123/78; PULSE 96; RESP 16; TEMP 36.3; O2SAT 99
== END 2025-03-10 15:25 | disposition home or self-care (01) ==
PROVIDERS: Emergency Provider Nurse Practitioner; PCP Emergency Medicine
DX: L73.9 Follicular disorder, unspecified (principal)
CPT/HCPCS: 99213; G0463

== ENCOUNTER 2025-06-22 18:57 | Emergency (ER) | payer BC, SELFPAY ==
--- NOTE | ~2025-06-22 | XR_ITS ---
CHEST RADIOGRAPH, PA AND LATERAL CLINICAL HISTORY: cp WITH INSPIRATION . COMPARISON: 03/24/2023 TECHNIQUE: PA and lateral views of the chest. FINDINGS The cardiomediastinal silhouette is unremarkable. The lungs are clear. IMPRESSION: No focal infiltrate or effusion. Reviewed, dictated and finalized at location A.
--- NOTE | 2025-06-22 18:58 | ECG_ITS ---
Test Date: 2025-06-22 19:08:06 Measurements Intervals [place] Rate: 100 P: 49 MI: 108 QRS: 55 QRSD: 99 T: 58 QT: 323 QTc: 418 Interpretive Statements SINUS TACHYCARDIA WITH SHORT [place] INTERVAL INCOMPLETE RIGHT BUNDLE BRANCH BLOCK BASELINE ARTIFACT- I, III, AVR, AVL BORDERLINE ECG No previous ECG available for comparison Electronically Signed On 06-22-2025 19:42:31 CDT by Donny Sanchez D.O.
--- OUTSIDE RECORDS SUMMARY | 2025-06-22 18:59 | XMS_ITS | Clinical Summary ---
Author Organization [facility] Address [address] [place] [address] Care Team Providers Care Director Corporate Name Role Phone Glenroy Diaz MD Primary Care Provider [phone] Source Comments [facility],non-owned Affiliates and Associated Physician Practices is amultiple site organization consisting of ambulatory clinics and hospital sitesin [place], [place], [place] and [place]. This disclosure is being madepursuant to the Care Everywhere program and may not contain all information available regarding this patient. Last updated 18.[facility] [employer] Social History Tobacco Use Types Packs/Day Years Used Date Smoking Tobacco: Never Assessed Sex and Gender Information Value Date Recorded Sex Assigned at Not on file Legal Sex Male 6:56 AM [employer] Gender Identity Not on file Sexual Orientation Not on file Last Filed Vital Signs Vital Sign Reading Time Taken Comments Blood Pressure 124/75 08/12/2014 9:46 PM CDT Pulse 78 08/12/2014 9:46 PM CDT Temperature 37.1 C (98.7 F) 08/12/2014 6:04 PM CDT Respiratory Rate 18 08/12/2014 9:46 PM CDT Oxygen Saturation 99% 08/12/2014 9:46 PM CDT Inhaled Oxygen Concentration - - Weight 106.6 kg (235 lb) 08/12/2014 6:04 PM CDT Height 185.4 cm (6' 1) 08/12/2014 6:04 PM CDT Body Mass Index 31 08/12/2014 6:04 PM CDT Plan of Treatment Health Maintenance Due Date Last Done Comments HIV SCREENING 2002 HEPATITIS C SCREENING 04/08/2005 DTAP/TDAP/TD VACCINES (1 - Tdap) 2006 HEPATITIS B VACCINE (1 of 3 - 19+ 3-dose series) 2006 HPV VACCINE (1 - 3-dose SCDM series) 2014 COVID-19 VACCINE (1 - 2023-2 5 season) 2024 DEPRESSION SCREENING 11/19/2024 INFLUENZA VACCINE (#1) 2025 ZOSTER VACCINE (1 of 2) 2037 HIB VACCINE Aged Out No longer eligi ble based on patient's age to complete this topic MENINGOCOCCAL (Group B) VACC INE SHARED DECISION-MAKING Aged Out No longer eligibl e based on patient's age to complete this topic MENINGOCOCCAL GROUPS A/C/Y/W VACCINE Aged Out No longer eligible b ased on patient's age to complete this topic PNEUMOCOCCAL VACCINE Aged Out No long er eligible based on patient's age to complete this topic Care Teams Director Corporate Relationship Specialty Start Date End Date Glenroy Diaz MD [address] [place] [id number] PCP - General 12/04/22
[2025-06-22 19:17] LABS: Hematocrit 43.3 % (42.0-52.0); Hemoglobin 14.1 g/dL (14.0-18.0); Immature Granulocyte Percent A 0.8 % (0-0.5); Lymphocytes Absolute Auto 1.31 K/mm3 (0.9-3.2); Mean Corpuscular HGB Conc 32.6 g/dl (32-36); Mean Corpuscular Hemoglobin 27.9 pg (26-34); Mean Corpuscular Volume 85.7 fl (80-100); Nucleated Red Blood Cells Absolute Auto 0.000 K/mm3 (0.0-0.012); Nucleated Red Blood Cells Perc 0.0 % (0.0-0.2); Platelet Count Result 445 k/mm3 (150-375); Red Blood Count 5.05 M/mm3 (4.6-6.20); White Blood Count 7.5 K/mm3 (4.5-10.0)
[2025-06-22 19:27] LABS: Alanine Aminotransferase 36 U/L (6-50); Albumin Level 4.3 g/dL (3.5-5.1); Alkaline Phosphatase 59 U/L (38-126); Anion Gap 8 mmol/L (4-12); Aspartate Amino Transferase 33 U/L (17-59); Bilirubin,Total 0.5 mg/dL (0.2-1.3); Blood Urea Nitrogen 12 mg/dL (9-20); Calcium 9.5 mg/dL (8.4-10.2); Carbon Dioxide 23 mmol/L (22-30); Chloride 108 mmol/L (98-107); Estimated Glomerular Filt Rate > 60; Glucose 125 mg/dL (65-110); Lipase 65 U/L (23-300); Potassium 4.1 mmol/L (3.4-5.0); Sodium 139 mmol/L (137-145); Total Protein 7.7 g/dL (6.3-8.2)
[2025-06-22 19:31] LABS: INR 1.0; Prothrombin Time 13.6 Seconds (11.1-14.7)
[2025-06-22 19:32] LABS: Partial Thromboplastin Time 26.8 Seconds (22.3-36.8)
[2025-06-22 19:39] LABS: Troponin I < 0.012 ng/mL (0.000-0.034)
[2025-06-22 20:02] VITALS: BP 144/83; PULSE 98; RESP 17; TEMP 36.3; O2SAT 95
--- NOTE | 2025-06-22 23:48 | ECG_ITS ---
Test Date: 2025-06-22 23:48:13 Measurements Intervals [place] Rate: 87 P: 61 IL: 116 QRS: 48 QRSD: 105 T: 61 QT: 356 QTc: 430 Interpretive Statements SINUS RHYTHM WITH SHORT [place] INTERVAL INCOMPLETE RIGHT BUNDLE BRANCH BLOCK BASELINE ARTIFACT- I, II, III, AVR, AVL, AVF, V1, V3 BORDERLINE ECG Compared to ECG 06/22/2025 19:08:06 HEART RATE HAS DECREASED Electronically Signed On 06-23-2025 10:00:17 CDT by Donny Sanchez D.O.
[2025-06-22 23:53] VITALS: BP 163/90; PULSE 86; RESP 20; TEMP 36.3; O2SAT 100
[2025-06-23 00:26] LABS: Troponin I < 0.012 ng/mL (0.000-0.034)
[2025-06-23 01:45] VITALS: PULSE 79
[2025-06-23 01:46] VITALS: BP 161/98; PULSE 79; RESP 12; O2SAT 98
[2025-06-23 01:52] VITALS: O2SAT 99
--- OUTSIDE RECORDS SUMMARY | 2025-06-23 02:00 | XMS_ITS | Clinical Summary ---
Author Organization [facility] Address [address] [place] [address] Care Team Providers Care Textile Examiner Name Role Phone Glenroy Diaz MD Primary Care Provider [phone] Source Comments [facility],non-owned Affiliates and Associated Physician Practices is amultiple site organization consisting of ambulatory clinics and hospital sitesin [place], [place], [place] and [place]. This disclosure is being madepursuant to the Care Everywhere program and may not contain all information available regarding this patient. 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
--- NOTE | 2025-06-23 02:09 | ED.CHESTPAIN ---
HPI - Chest Pain General Chief Complaint: Chest Pain Stated Complaint: cp 2 days Time Seen by Provider: 06/23/25 01:52 Source: patient Mode of arrival: ambulatory Limitations: no limitations History of Present Illness HPI narrative: Patient presents with left-sided chest pain of more than 2 days duration. He describes it as a tightness. States he intermittently feels short of breath. He feels like that tightness increases when he takes a deep breath. His fingers have been numb for approximately a year. Denies any dizziness. States that the pain is constant but varies in intensity. He as lost 15 lb and has been more intentional about diet and exercise, using the treadmill. Uses liquid IV daily. States that he has had a lot of life stressors lately and did note this might be related. Asks if this might represent a panic attack. Denies any cough, fevers, or chills. States this has never happened before. Denies any underlying respiratory or cardiac issues. Has never seen a motorcycle mechanic apprentice. Denies any edema, bilateral or unilateral. No hemoptysis. Denies any recent surgery or trauma or requiring anesthesia. No history of PE or DVT. Not on anticoagulation. Has a primary care physician. Denies any rash. 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 Cardiac risk factors HTN: No HLD: No DM: No Obese: Yes Smoker: Quit more than 3 months ago Personal history CA/TIA/CVA: No Fam Hx CA in first degree relative <65yo: No Related Data Allergies Allergy/AdvReac Type Severity Reaction Status Date / Time Sulfa (Sulfonamide Allergy Mild Unknown Verified 06/22/25 20:07 Antibiotics) [facility] Family History Family History Grandparent Acute myocardial infarction Social History Social History Smoking status: Former smoker Smoking end date: 11/19/21 Occupation/Education: occupation Additional occupation/education comments: Security Gender identity (if verbalized by the patient): Male Sexual Orientation (if Verbalized by the Patient): Straight or Heterosexual Exam Narrative: GENERAL: Well-appearing, well-nourished, and in no acute distress. HEAD: Normocephalic, atraumatic. EYES: Non injected, non icteric ENT: Nares clear, no rhinorrhea or epistaxis. Gross auditory acuity intact. NECK: Supple. No meningismus. CHEST: Speaking in full sentences. No respiratory distress. HEART: Regular rate and rhythm. . ABDOMEN: Soft, nondistended. No rigidity or guarding. Not peritoneal EXTREMITIES: Normal range of motion. No lower extremity edema. SKIN: Warm, dry, no rash. NEURO: No focal deficits. Alert and oriented. Answering questions. Following commands. Normal speech without aphasia or dysarthria. PSYCH: Slightly anxious but engaged in care, congruent mood and affect. Course Vital Signs Vital signs: Vital Signs Temperature 97.4 F L 06/22/25 20:02 Pulse Rate 98 06/22/25 20:02 Respiratory Rate 17 06/22/25 20:02 Blood Pressure 144/83 H 06/22/25 20:02 Pulse Oximetry 95 06/22/25 20:02 Oxygen Delivery Room Air 06/22/25 20:02 Temperature 97.3 F L 06/22/25 23:53 Pulse Rate 79 06/23/25 02:56 Respiratory Rate 12 06/23/25 02:56 Blood Pressure 161/98 H 06/23/25 02:56 Pulse Oximetry 98 06/23/25 02:56 Oxygen Delivery Room Air 06/23/25 01:52 MDM - Chest Pain MDM Narrative Medical decision making narrative: 40-year-old male presents with report of chest pain of more than 2 days duration, he states it is been going on for more than 55 hours.. In the emergency department he is afebrile vital signs notable for hypertension. HEART SCORE History 2 highly suspicious 1 moderately suspicious 0 slightly suspicious History score [address] depression/elevation not due to LBBB, LVH, or digoxin [address] depression but LBBB, LVH, nonspecific repolarization changes 0 normal ECG score 0 Age 2 >/= 65 1 45-64 0 <45 Age score 0 Risk factors (HTN, hypercholesterolemia, DM, obesity with BMI >30, current smoker or cessation </=3mo), positive fam hx with parent or sibling with CVD before age 65, atherosclerotic disease (prior CA, PCI/CABG, CVA/TIA, or peripheral arterial disease) 2 >/= 3 risk factors or history of atherosclerotic dz 1 - 1-2 risk factors 0 no known risk factors Risk factor score 1 Initial Troponin 2 >3 times normal limit 1 1-3 times normal limit 0 less than or equal to normal limit Troponin score 0 Total HEART Score 1 PERC Rule Age greater than or equal to 50: 0 HR greater than or equal to 100: 0 O2 sat room air <95%: 0 Unilateral leg swellin Hemoptysis:0 Recent surgery or trauma less than 4 wks ago requiring tx with general anesthesia:0 Prior PE or DVT:0 Hormone use (OCP, HRT or estrogenic hormone use in M/F patients): 0 Will not proceed with further work up for PE at this time given very low suspicion/pre test probability. Thrombocytosis, previously seen. Repeat troponin negative. Has a primary care physician. Discussed is otherwise low risk and advised outpatient follow-up. Patient verifies understanding and is in agreement. Stable for discharge. Differential Diagnosis Differential diagnosis: Likely pneumothorax, stable angina, unstable angina pectoris, atypical chest pain, st elevation myocardial infarction, costochondritis, chest pain, biliary colic and other (Shingles/zoster, torn pectoral muscle, considered PE. Considered pneumonia. Possible component of psychogenic/anxiousness though does not sound consistent with a panic attack) Lab Data Attestation: I reviewed the patient's lab results. 06/22/25 19:11 06/22/25 19:11 Labs: Lab Results 06/22/25 06/22/25 Range/Units 19:11 23:43 WBC 7.5 (4.5-10.0) K/mm3 RBC 5.05 (4.6-6.20) M/mm3 Hgb 14.1 (14.0-18.0) g/dL Hct 43.3 (42.0-52.0) % MCV 85.7 (80-100) fl MCH 27.9 (26-34) pg MCHC 32.6 (32-36) g/dl RDW 13.2 (11.5-14.5) % Plt Count 445 H (150-375) k/mm3 MPV 8.8 (7.4-10.4) fl Immature Gran % (Auto) 0.8 H (0-0.5) % Neut % (Auto) 72.0 (45.5-73.1) % Lymph % (Auto) 17.4 L (18.3-44.2) % Hunt % (Auto) 8.1 (2.6-8.5) % Eos % (Auto) 1.2 (0-4.4) % Baso % (Auto) 0.5 (0.2-1.2) % Lymph # (Auto) 1.31 (0.9-3.2) K/mm3 Hunt # (Auto) 0.6 (0.1-0.6) K/mm3 Eos # (Auto) 0.1 (0-0.3) K/mm3 Baso # (Auto) 0.0 (0.0-0.1) K/mm3 Abs Immat Gran (auto) 0.06 H (0.00-0.031) K/mm3 Absolute Neuts (auto) 5.4 (1.3-6.7) K/mm3 Absolute Nucleated RBC 0.000 (0.0-0.012) K/mm3 Nucleated RBC % 0.0 (0.0-0.2) % PT 13.6 (11.1-14.7) Seconds INR 1.0 APTT 26.8 (22.3-36.8) Seconds Sodium 139 (137-145) mmol/L Potassium 4.1 (3.4-5.0) mmol/L Chloride 108 H (98-107) mmol/L Carbon Dioxide 23 (22-30) mmol/L Anion Gap 8 (4-12) mmol/L BUN 12 (9-20) mg/dL Creatinine 0.78 (0.7-1.3) mg/dL Estim Creat Clear Calc Not Reportable Estimated GFR > 60 (59 - ) Glucose 125 H (65-110) mg/dL Calcium 9.5 (8.4-10.2) mg/dL Total Bilirubin 0.5 (0.2-1.3) mg/dL AST 33 (17-59) U/L ALT 36 (6-50) U/L Alkaline Phosphatase 59 (38-126) U/L Troponin I < 0.012 < 0.012 (0.000-0.034) ng/mL Total Protein 7.7 (6.3-8.2) g/dL Albumin 4.3 (3.5-5.1) g/dL Lipase 65 (23-300) U/L Imaging Data Radiologist's impression: IMPRESSION: No focal infiltrate or effusion. ECG Data EKG #1: Attestation: I personally reviewed and interpreted this ECG as follows: ECG completion date: 06/22/25 ECG completion time: 19:08 Interpretation: Sinus tachycardia at a rate of 100 beats per minute with NY interval 108 milliseconds. QRS 99. QT/QTC 323/418. Good R-wave progression across the precordial leads. No T-wave inversions. Normal axis. Discharge Plan Discharge Clinical Impression: Left-sided chest pain, Thrombocytosis Instructions: Antibiotic Form, Chest Pain (ED) Additional Instructions: As we discussed, unclear cause of your symptoms although your workup has been reassuring. Follow-up with primary care physician. If needed, the name of a motorcycle mechanic apprentice is listed below. Acetaminophen/Tylenol (maximum 4000 mg per day) is safe to take with NSAIDs (ibuprofen/Motrin) for pain relief. Patient Language: Wolof Prescriptions: New ibuprofen 600 mg tablet 600 mg PO TID PRN (Reason: pain) Qty: 30 0RF acetaminophen 500 mg capsule 1,000 mg PO Q6H PRN (Reason: pain) Qty: 30 0RF No Action clindamycin phosphate 1 % solution 1 applic topical DAILY Qty: 30 0RF Follow-up/Referrals: Dionisio Dubon MD [Physician] - Glenroy Diaz MD [Primary Care Provider] - Stand Alone Forms: Work/School Release IP Time of Disposition: 02:42
[2025-06-23 02:56] VITALS: BP 161/98; PULSE 79; RESP 12; O2SAT 98
== END 2025-06-23 02:59 | disposition home or self-care (01) ==
PROVIDERS: Emergency Medicine; Emergency Provider Student in an Organized Health Care Education/Training Program; PCP Emergency Medicine
DX: R07.89 Other chest pain (principal); D75.839 Thrombocytosis, unspecified; R00.0 Tachycardia, unspecified
CPT/HCPCS: 36415; 71046; 80053; 83690; 84484; 85025; 85610; 85730; 93005; 99284